=== PATIENT | female | born 1945 | race Caucasian/White ===

== ENCOUNTER → 2017-03-01 11:19 | Outpatient (CLI) | payer MEDICARE, OTHER ==
[2012-08-15 10:55] VITALS: BMI 32.6
== END | disposition home or self-care (01) ==
LOC: D.MRI 11:19
DX: R55 Syncope and collapse (principal); I63.139 Cerebral infarction due to embolism of unspecified carotid artery

== ENCOUNTER → 2017-04-27 09:37 | Outpatient (CLI) | payer MEDICARE, OTHER ==
[2012-08-15 10:55] VITALS: BMI 32.6
--- NOTE | ~2017-04-27 | EEG ---
PATIENT:SANDY MADDEN DATE OF SERVICE: 04/27/17 MEDICAL RECORD: [id number] DATE OF : 45 LOCATION: [facility] ADMISSION DATE: 04/27/17 REFERRING PHYSICIAN: INTERPRETING PHYSICIAN: KIANNA BAILON MD DATE OF SERVICE: 04/27/2017 Electroencephalographic Report Referred as an outpatient by myself. ELECTROENCEPHALOGRAM NUMBER: [id number]. DATE OF EXAMINATION: 04/27/17 at 10:20 a.m. TECHNICAL DATA: This electroencephalographic recording consists of approximately 20 minutes of data collection utilizing the international 10/20 system of electrode placement and both referential and non-referential montages. Sixteen channels of electrocerebral recording are accompanied by a 17th channel dedicated to the electrocardiographic rhythm and 2 channels of electromyographic recording. Recording is performed in the awake and drowsy states utilizing activation by photic stimulation. ELECTROENCEPHALOGRAPHIC DATA: The awake state comprises approximately 40% of the recorded electrocerebral activity. Electromyographic artifact is prominent and rapid eye movements are seen. The posterior dominant background consists of a well-developed, symmetric, rhythmic, waxing and waning alpha activity of 8-9 Hz, which is suppressed by eye opening. The drowsy state comprises the remaining portion of the recorded electrocerebral activity. Electromyographic artifact is diminished and rapid eye movements are not seen. The posterior dominant background continues in the drowsy state. Also seen is an intermittent irregular, generalized and symmetric 3-4 Hz delta slowing, which occurs for periods of 1-2 seconds approximately once every 1-2 pages. No abnormal nor focal slowing is identified. No epileptiform discharges are seen. Photic stimulation induces no abnormal change in the recorded electrocerebral activity. INTERPRETATION: Normal (awake and drowsy). This is a normal electroencephalographic recording. 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
== END | disposition home or self-care (01) ==
LOC: D.CN 09:37
DX: R55 Syncope and collapse (principal)

== ENCOUNTER → 2018-05-24 09:07 | Outpatient (CLI) | payer MEDICARE, OTHER ==
[2012-08-15 10:55] VITALS: BMI 32.6
== END | disposition home or self-care (01) ==
LOC: D.MRI 09:07
DX: M48.8X6 Other specified spondylopathies, lumbar region (principal)

== ENCOUNTER → 2020-02-21 09:01 | Outpatient (CLI) | payer OTHER ==
[2012-08-15 10:55] VITALS: BMI 32.6
== END | disposition home or self-care (01) ==
LOC: D.MRI 09:01
PROVIDERS: ATTEND Family Medicine
DX: R47.01 Aphasia (principal); M75.92 Shoulder lesion, unspecified, left shoulder

== ENCOUNTER → 2020-06-17 11:14 | Outpatient (CLI) | payer OTHER ==
[2012-08-15 10:55] VITALS: BMI 32.6
== END | disposition home or self-care (01) ==
LOC: D.RAD 11:14
PROVIDERS: ATTEND Anesthesiology
DX: M25.562 Pain in left knee (principal)

== ENCOUNTER → 2020-07-21 09:04 | Outpatient (CLI) | payer OTHER ==
[2012-08-15 10:55] VITALS: BMI 32.6
== END | disposition home or self-care (01) ==
LOC: D.MRI 09:04
PROVIDERS: ATTEND Anesthesiology
DX: G89.4 Chronic pain syndrome (principal); M25.562 Pain in left knee